=== PATIENT | male | born 1930 | race American Indian/Alaskan Native ===

== ENCOUNTER 2017-05-10 10:47 | Emergency (ER) | payer MEDICARE ==
--- NOTE | 2017-05-10 11:20 | Emergency Department Report ---
ED Lower Extremity HPI - General Chief Complaint: Extremity Injury, Lower Stated Complaint: R FOOT BUNION Time Seen by Provider: 05/10/17 11:03 Source: patient, family Mode of arrival: Ambulatory Limitations: No Limitations - History of Present Illness Initial Comments: This is a 87 y.o. M presents with right great toe pain. He states 3 days ago he woke up with pain to right great toe. States it is painful to put a sock on or anything rubbing against it. He denies falling or bumping it against anything. It is aggravated with touch, movement, and unable to bear pressure. He used Epson salt and hot water soaks x 2 w/o relief. States blood pressure is possibly elevated due to pain because took medication at 7 am this morning. He can't remember the name of hypertension medication only dose and route, 10 mg, po, daily. PCP at [facility]. Onset/Timin -: Sudden, days(s) Injury: Foot: Right (distal 1st metatorsal) Severity: moderate Severity scale (0 -10): 8 Improves With: immobilization, rest, other (Epsion salt soaks) Worsens With: weight bearing, movement, palpation Context: other (Awoke 3 days with pain and swelling to right great toe) Associated Symptoms: swelling, able to partially bear weight, ambulatory Treatments Prior to Arrival: other (epson salt and hot water soaks) - Related Data Previous Rx's Medication Instructions Recorded Last Taken Type Potassium Chloride [Klor-Con 10] 10 meq PO ONCE 1 Days #4 tablet.er 05/10/17 Unknown Rx Prednisone [predniSONE 10 mg 10 mg PO .TAPER #1 tab.ds.pk 05/10/17 Unknown Rx (6-Day Pack, 21 Tabs)] traMADol [Ultram 50 MG tab] 50 mg PO Q6HR PRN 5 Days #20 tablet 05/10/17 Unknown Rx Allergies Allergy/AdvReac Type Severity Reaction Status Date / Time No Known Allergies Allergy Unverified 05/10/17 10:52 ED Review of Systems ROS: Stated complaint: R FOOT BUNION Other details as noted in HPI Constitutional: denies: chills, fever Eyes: denies: eye pain, eye discharge, vision change ENT: denies: ear pain, throat pain Respiratory: denies: cough, shortness of breath, wheezing Cardiovascular: denies: chest pain, palpitations Endocrine: no symptoms reported Gastrointestinal: denies: abdominal pain, nausea, diarrhea Genitourinary: denies: urgency, dysuria Musculoskeletal: joint swelling, other (Erythema, tenderness and swelling to dorsal, right first metatarsophalangeal joint, shiny skin over joint). denies: back pain, arthralgia Skin: denies: rash, lesions Neurological: denies: headache, weakness, paresthesias Psychiatric: denies: anxiety, depression Hematological/Lymphatic: denies: easy bleeding, easy bruising ED Past Medical Hx - Past Medical History Hx Hypertension: Yes Hx CVA: No Hx Heart Attack/AMI: No Hx Congestive Heart Failure: No Hx Diabetes: No Hx Deep Vein Thrombosis: No Hx Pulmonary Embolism: No Hx GERD: No Hx Liver Disease: No Hx Renal Disease: No Hx of Cancer: No Hx Sickle Cell Disease: No Hx Arthritis: No Hx Headaches / Migraines: No Hx Seizures: No Hx Kidney Stones: No Hx Psychiatric Treatment: No Hx Asthma: No Hx COPD: No Hx Tuberculosis: No Hx Dementia: No Hx HIV: No - Surgical History Hx Coronary Stent: No Hx Open Heart Surgery: No Hx Pacemaker: No Hx Internal Defibrillator: No Hx Cholecystectomy: No Hx Appendectomy: No Hx Breast Surgery: No Additional Surgical History: PROSTATE SURGERY 1998 - Social History Smoking Status: Current Every Day Smoker Substance Use Type: None - Medications Home Medications: Home Medications Medication Instructions Recorded Confirmed Last Taken Type Potassium Chloride [Klor-Con 10] 10 meq PO ONCE 1 Days #4 tablet.er 05/10/17 Unknown Rx Prednisone [predniSONE 10 mg 10 mg PO .TAPER #1 tab.ds.pk 05/10/17 Unknown Rx (6-Day Pack, 21 Tabs)] traMADol [Ultram 50 MG tab] 50 mg PO Q6HR PRN 5 Days #20 tablet 05/10/17 Unknown Rx ED Physical Exam - General Limitations: No Limitations General appearance: alert, in no apparent distress - Head Head exam: Present: normocephalic, normal inspection - Eye Eye exam: Present: normal appearance - Neck Neck exam: Present: normal inspection - Extremities Exam Extremities exam: Present: tenderness, normal capillary refill, joint swelling - Expanded Lower Extremity Exam Right Foot/Toe exam: Present: tenderness, swelling, erythema (tenderness at head of first MTP joint) - Neurological Exam Neurological exam: Present: alert, oriented X3, CN II-XII intact, abnormal gait (Unable to bear pressure to right foot), reflexes normal. Absent: altered, motor sensory deficit - Psychiatric Psychiatric exam: Present: normal affect, normal mood. Absent: depressed, agitated, anxious, flat affect, manic, homicidal ideation, suicidal ideation - Skin Skin exam: Present: warm, dry, intact, erythema (right distal great toe). Absent: rash, cyanosis, diaphoretic, urticaria, vesicles, petechiae, pallor, abrasion, ecchymosis ED Course Vital Signs 05/10/17 05/10/17 10:52 13:54 Temperature 98.6 F Pulse Rate 94 H 86 Respiratory 18 18 Rate Blood Pressure 158/99 Blood Pressure 134/74 [Left] O2 Sat by Pulse 98 Oximetry ED Lower Extremity MDM - Lab Data Result diagrams: 05/10/17 11:56 05/10/17 11:00 - Radiology Data Radiology results: report reviewed Soft tissue swelling, mild degenerative changes, and plantar spur - Medical Decision Making 87 y.o. M. came in with acute right great toe pain. Dx with gout. Started on colcrys, ordered CMP to check renal function. Potassium was 3.1. Given Klor-con 40 mEq po once and advised to f/u with PCP at [place]. Critical care attestation.: If time is entered above; I have spent that time in minutes in the direct care of this critically ill patient, excluding procedure time. ED Disposition Clinical Impression: Acute hypokalemia Gout attack Qualifiers: Gout site: foot Gout etiology: idiopathic Laterality: right Qualified Code(s): M10.071 - Idiopathic gout, right ankle and foot Disposition: TO HOME OR SELFCARE Is pt being admited?: No Does the pt Need Aspirin: No Condition: Stable Instructions: Low Purine Diet (ED), Acute Gouty Arthritis (ED), Self-Care Measures with a Chronic Disease (ED) Additional Instructions: Follow-up with PCP on Friday to recheck potassium. Prescriptions: Potassium Chloride [Klor-Con 10] 10 meq PO ONCE 1 Days #4 tablet.er Prednisone [predniSONE 10 mg (6-Day Pack, 21 Tabs)] 10 mg PO .TAPER #1 tab.ds.pk traMADol [Ultram 50 MG tab] 50 mg PO Q6HR PRN 5 Days #20 tablet PRN Reason: Pain Referrals: PRIMARY CARE, [Primary Care Provider] - 3-[address] [facility] [Outside] - 3-5 Days Time of Disposition: 15:30 Print Language: MACEDONIAN
[2017-05-10 12:13] LABS: Basophils % (Auto) 0.4 % (0.0-1.8); Eosinophils % (Auto) 0.1 % (0.0-4.3); Hematocrit 38.6 % (35.5-45.6); Hemoglobin 12.6 gm/dl (11.8-15.2); Mean Corpuscular HGB Conc 33 % (32-34); Mean Corpuscular Hemoglobin 29 pg (28-32); Mean Corpuscular Volume 90 fl (84-94); Platelet Count 205 K/mm3 (140-440); Red Blood Count 4.28 M/mm3 (3.65-5.03); Red Cell Distribution Width 13.3 % (13.2-15.2); White Blood Count 7.2 K/mm3 (4.5-11.0)
--- NOTE | 2017-05-10 12:21 | XRay Report ---
RIGHT FOOT, 3 views: History: Right great toe pain There is mild soft tissue swelling distally. Bone mineralization is mildly decreased. No evidence for displaced fracture, periostitis or bony erosions. Mild osteoarthritic changes are noted at the first metatarsophalangeal joint. Small plantar spur. IMPRESSION: Mild soft tissue swelling. Mild degenerative changes. Plantar spur.
[2017-05-10] MEDS ORDERED: ULTRAM PO ONE (13:29)
[2017-05-10 13:56] VITALS: BP 134/74
[2017-05-10 15:08] LABS: Albumin 3.5 g/dL (3.9-5); Albumin/Globulin Ratio 0.9 %; Alkaline Phosphatase 75 units/L (35-129); Anion Gap 22 mmol/L; BUN/Creatinine Ratio 15; Blood Urea Nitrogen 15 mg/dL (9-20); Calcium 8.7 mg/dL (8.4-10.2); Carbon Dioxide 21 mmol/L (22-30); Chloride 100.6 mmol/L (98-107); Glucose 88 mg/dL (75-100); Potassium 3.1 mmol/L (3.6-5.0); Sodium 140 mmol/L (137-145); Total Protein 7.3 g/dL (6.3-8.2)
[2017-05-10 15:09] LABS: Alanine Aminotransferase < 5 units/L (7-56)
== END 2017-05-10 16:01 | disposition home or self-care (01) ==
LOC: ED 10:47
DX: M10.071 Idiopathic gout, right ankle and foot (principal); E87.6 Hypokalemia; I10 Essential (primary) hypertension; F17.200 Nicotine dependence, unspecified, uncomplicated
CPT/HCPCS: 36415; 80053; 83735; 84550; 85025

== ENCOUNTER 2017-05-29 10:01 | Emergency (ER) | payer MEDICARE ==
[2017-05-29] MEDS ORDERED: NORVASC PO ONE (16:18)
[2017-05-29] MEDS ORDERED: NORCO 5/325 PO ONE (16:19)
--- NOTE | 2017-05-29 16:38 | Emergency Department Report ---
ED Extremity Problem HPI - General Chief complaint: Extremity Problem,Nontraumatic Stated complaint: GOUT Source: patient Mode of arrival: Ambulatory Limitations: No Limitations - History of Present Illness Initial comments: 87 y/o nontoxic in appearance M presents today stating that his gout has been acting up again. Pt was seen here 2 weeks ago for the same issue. He states that it hurts so bad to even put a sock on the foot. Pt reports to some warmth and a 6/10 in severity pain at this time. He denies any fever, chills, chest pain, blurried vision, or headaches at this time. He states that he takes amlodipine usually at home but has not taken this morning as he was busy and forgot. Pt take amlodipine at home. NDKDA. -: days(s) (1) Location: right, toe History of Same: Yes Radiation: none Severity scale (0 -10): 6 Quality: stabbing Consistency: constant - Related Data Previous Rx's Medication Instructions Recorded Last Taken Type Potassium Chloride [Klor-Con 10] 10 meq PO ONCE 1 Days #4 tablet.er 05/10/17 Unknown Rx Prednisone [predniSONE 10 mg 10 mg PO .TAPER #1 tab.ds.pk 05/10/17 Unknown Rx (6-Day Pack, 21 Tabs)] traMADol [Ultram 50 MG tab] 50 mg PO Q6HR PRN 5 Days #20 tablet 05/10/17 Unknown Rx traMADol [Ultram] 50 mg PO Q6HR PRN 5 Days #20 tablet 05/29/17 Unknown Rx Allergies Allergy/AdvReac Type Severity Reaction Status Date / Time No Known Allergies Allergy Unverified 05/10/17 10:52 ED Review of Systems ROS: Stated complaint: GOUT Other details as noted in HPI Constitutional: denies: chills, fever Eyes: denies: eye pain, eye discharge, vision change ENT: denies: ear pain, throat pain Respiratory: denies: cough, shortness of breath, wheezing Cardiovascular: denies: chest pain, palpitations Musculoskeletal: other (right great toe, pain, swelling, and warmth) Skin: other (warmth of the right great toe) Neurological: denies: headache, weakness, paresthesias Psychiatric: denies: anxiety, depression ED Past Medical Hx - Past Medical History Hx Hypertension: Yes Hx CVA: No Hx Heart Attack/AMI: No Hx Congestive Heart Failure: No Hx Diabetes: No Hx Deep Vein Thrombosis: No Hx Pulmonary Embolism: No Hx GERD: No Hx Liver Disease: No Hx Renal Disease: No Hx Sickle Cell Disease: No Hx Arthritis: No Hx Headaches / Migraines: No Hx Seizures: No Hx Kidney Stones: No Hx Psychiatric Treatment: No Hx Asthma: No Hx COPD: No Hx Tuberculosis: No Hx Dementia: No Hx HIV: No - Surgical History Hx Coronary Stent: No Hx Open Heart Surgery: No Hx Pacemaker: No Hx Internal Defibrillator: No Hx Cholecystectomy: No Hx Appendectomy: No Hx Breast Surgery: No Additional Surgical History: PROSTATE SURGERY 1998 - Social History Smoking Status: Current Every Day Smoker Substance Use Type: None - Medications Home Medications: Home Medications Medication Instructions Recorded Confirmed Last Taken Type Potassium Chloride [Klor-Con 10] 10 meq PO ONCE 1 Days #4 tablet.er 05/10/17 Unknown Rx Prednisone [predniSONE 10 mg 10 mg PO .TAPER #1 tab.ds.pk 05/10/17 Unknown Rx (6-Day Pack, 21 Tabs)] traMADol [Ultram 50 MG tab] 50 mg PO Q6HR PRN 5 Days #20 tablet 05/10/17 Unknown Rx traMADol [Ultram] 50 mg PO Q6HR PRN 5 Days #20 tablet 05/29/17 Unknown Rx ED Physical Exam - General Limitations: No Limitations General appearance: alert, in no apparent distress - Head Head exam: Present: atraumatic, normocephalic - Eye Eye exam: Present: normal appearance - ENT ENT exam: Present: mucous membranes moist - Neck Neck exam: Present: normal inspection - Respiratory Respiratory exam: Present: normal lung sounds bilaterally. Absent: respiratory distress - Cardiovascular Cardiovascular Exam: Present: regular rate, normal rhythm. Absent: systolic murmur, diastolic murmur, rubs, gallop - Extremities Exam Extremities exam: Present: other (there is ttp at the first MTP right foot, redness and warmth) - Neurological Exam Neurological exam: Present: alert, oriented X3, CN II-XII intact - Psychiatric Psychiatric exam: Present: normal affect, normal mood - Skin Skin exam: Present: other (warmth of the first great toe-right foot) ED Course Vital Signs 05/29/17 05/29/17 05/29/17 10:21 15:59 16:30 Temperature 97.8 F Pulse Rate 78 78 Respiratory 18 Rate Blood Pressure 178/116 180/108 Blood Pressure 180/108 [Right] O2 Sat by Pulse 96 Oximetry 05/29/17 16:55 Temperature 97.7 F Pulse Rate 75 Respiratory 16 Rate Blood Pressure Blood Pressure 173/103 [Right] O2 Sat by Pulse 98 Oximetry ED Medical Decision Making - Medical Decision Making Case was discussed with Dr. Du regarding management and treatment. Pt was given Coleman here in the ED of the pain and amlodipine 10 mg foe the elevated BP. He was discharged with Ultram for home. Pt was advised the importance of follow-up with PCP regarding elevated BP, he reported verbal understanding. Pt was adamant to leave at this time despite the elevated BP. At this time, he was not symptamtic, no chest pain, SOB, vision changes, headache, or blurried vision. Dr. Du states that it will be okay to discharge him home at this time, with close PCP follow-up. pt had a ride to transport him home today. He was alert and oriented and in no resp distress at discharge. Critical care attestation.: If time is entered above; I have spent that time in minutes in the direct care of this critically ill patient, excluding procedure time. ED Disposition Clinical Impression: Gout attack Qualifiers: Gout site: toe Gout etiology: unspecified cause Laterality: right Qualified Code(s): M10.9 - Gout, unspecified Disposition: - TO HOME OR SELFCARE Is pt being admited?: No Does the pt Need Aspirin: No Condition: Stable Instructions: Tramadol (By mouth), Acute Gouty Arthritis (ED) Additional Instructions: Please be advised that this medication may cause drowsiness, do not take with driving or operating heavy machinery. It is very important that you follow-up with PCP for your diagnosis and age. Please follow-up with them within 3-5 days. Referral to orthopedics has been provided for you today as well. Please return to the ER immediately if you presenting symptoms progress or acutely worsen. Pt educated about the importance of follow-up for elevated BP. Prescriptions: traMADol [Ultram] 50 mg PO Q6HR PRN 5 Days #20 tablet PRN Reason: Pain Referrals: SAUL PANCHAL MD [Primary Care Provider] - 3-5 Days HAYLEY BARTH MD [Staff Physician] - 3-5 Days [facility] [Outside] - 3-5 Days [facility] [Outside] - 3-5 Days JUAN PABLO LYON MD [Staff Physician] - 3-5 Days Forms: Work/School Release Form(ED)
[2017-05-29 16:56] VITALS: BP 173/103
== END 2017-05-29 17:46 | disposition home or self-care (01) ==
LOC: ED 10:01
DX: M10.9 Gout, unspecified (principal); I10 Essential (primary) hypertension; F17.200 Nicotine dependence, unspecified, uncomplicated
CPT/HCPCS: 99282

== ENCOUNTER 2017-07-11 10:36 | Emergency (ER) | payer MEDICARE ==
[2017-07-11 11:13] VITALS: BP 146/89
--- NOTE | 2017-07-11 13:14 | Emergency Department Report ---
Chief Complaint: Extremity Problem,Nontraumatic Stated Complaint: GOUT PAIN - HPI History of Present Illness: 87-year-old male states that he "feels pretty good" except for his right foot pain. He has gout exacerbation. - Exam Vital Signs: Vital Signs 07/11/17 11:10 Temperature 97.7 F Pulse Rate 82 Respiratory 18 Rate Blood Pressure 146/89 O2 Sat by Pulse 98 Oximetry MSE screening note: Focused history and physical exam performed. Due to findings the following was ordered: ED Disposition for MSE Condition: Stable
[2017-07-11] MEDS ORDERED: TORADOL IM ONE (13:25)
[2017-07-11] MEDS ORDERED: DECADRON IM ONE (13:25)
--- NOTE | 2017-07-11 13:27 | Emergency Department Report ---
ED Extremity Problem HPI - General Chief complaint: Extremity Problem,Nontraumatic Stated complaint: GOUT PAIN Time Seen by Provider: 07/11/17 13:22 Source: patient Mode of arrival: Ambulatory Limitations: No Limitations - History of Present Illness Initial comments: 87-year-old -[place] male with a past medical history of hypertension and gout comes in for complaint of right foot first digit swelling and pain that reports 7 out of 10. Patient reports that he does not drink he only eats fish and vegetables. He denies any kidney disease no MIs, only hypertension history of gout. He is not familiar to wet his gout medication has been in the past. He is followed by Dr. Deni Painting in [place]. MD Complaint: extremity pain, extremity swelling -: days(s) (3) - Related Data Previous Rx's Medication Instructions Recorded Last Taken Type Potassium Chloride [Klor-Con 10] 10 meq PO ONCE 1 Days #4 tablet.er 05/10/17 Unknown Rx traMADol [Ultram 50 MG tab] 50 mg PO Q6HR PRN 5 Days #20 tablet 05/10/17 Unknown Rx traMADol [Ultram] 50 mg PO Q6HR PRN 5 Days #20 tablet 05/29/17 Unknown Rx Indomethacin [Indocin] 25 mg PO Q8H 5 Days #15 capsule 07/11/17 Unknown Rx Prednisone [predniSONE 10 mg 10 mg PO .TAPER #1 tab.ds.pk 07/11/17 Unknown Rx (6-Day Pack, 21 Tabs)] Allergies Allergy/AdvReac Type Severity Reaction Status Date / Time No Known Allergies Allergy Unverified 05/10/17 10:52 ED Review of Systems ROS: Stated complaint: GOUT PAIN Other details as noted in HPI Constitutional: denies: chills, fever Eyes: denies: eye pain, eye discharge, vision change ENT: denies: ear pain, throat pain Respiratory: denies: cough, shortness of breath, wheezing Cardiovascular: denies: chest pain, palpitations Endocrine: no symptoms reported Gastrointestinal: denies: abdominal pain, nausea, diarrhea Musculoskeletal: joint swelling, arthralgia Skin: denies: rash, lesions Neurological: denies: headache, weakness, paresthesias Psychiatric: denies: anxiety, depression ED Past Medical Hx - Past Medical History Hx Hypertension: Yes Hx CVA: No Hx Heart Attack/AMI: No Hx Congestive Heart Failure: No Hx Diabetes: No Hx Deep Vein Thrombosis: No Hx Pulmonary Embolism: No Hx GERD: No Hx Liver Disease: No Hx Renal Disease: No Hx Sickle Cell Disease: No Hx Arthritis: No Hx Headaches / Migraines: No Hx Seizures: No Hx Kidney Stones: No Hx Psychiatric Treatment: No Hx Asthma: No Hx COPD: No Hx Tuberculosis: No Hx Dementia: No Hx HIV: No - Surgical History Hx Coronary Stent: No Hx Open Heart Surgery: No Hx Pacemaker: No Hx Internal Defibrillator: No Hx Cholecystectomy: No Hx Appendectomy: No Hx Breast Surgery: No Additional Surgical History: PROSTATE SURGERY 1998 - Social History Smoking Status: Current Every Day Smoker Substance Use Type: None - Medications Home Medications: Home Medications Medication Instructions Recorded Confirmed Last Taken Type Potassium Chloride [Klor-Con 10] 10 meq PO ONCE 1 Days #4 tablet.er 05/10/17 Unknown Rx traMADol [Ultram 50 MG tab] 50 mg PO Q6HR PRN 5 Days #20 tablet 05/10/17 Unknown Rx traMADol [Ultram] 50 mg PO Q6HR PRN 5 Days #20 tablet 05/29/17 Unknown Rx Indomethacin [Indocin] 25 mg PO Q8H 5 Days #15 capsule 07/11/17 Unknown Rx Prednisone [predniSONE 10 mg 10 mg PO .TAPER #1 tab.ds.pk 07/11/17 Unknown Rx (6-Day Pack, 21 Tabs)] ED Physical Exam - General Limitations: No Limitations General appearance: alert, in no apparent distress - Head Head exam: Present: atraumatic, normocephalic - Cardiovascular Cardiovascular Exam: Present: regular rate, normal rhythm. Absent: systolic murmur, diastolic murmur, rubs, gallop - Rectal Rectal exam: Present: deferred - Extremities Exam Extremities exam: Present: normal inspection - Back Exam Back exam: Present: normal inspection - Neurological Exam Neurological exam: Present: alert, oriented X3 - Psychiatric Psychiatric exam: Present: normal affect, normal mood - Skin Skin exam: Present: warm, dry, intact, normal color. Absent: rash ED Course Vital Signs 07/11/17 11:10 Temperature 97.7 F Pulse Rate 82 Respiratory 18 Rate Blood Pressure 146/89 O2 Sat by Pulse 98 Oximetry ED Medical Decision Making - Medical Decision Making Patient's been evaluated by this provider fast track. Discussed the patient we will treat his gout and discharge him home patient very pleased with that we discussed he needs this followed up with his primary care which is Dr. Painting in [place] patient verbalizes understanding. Critical care attestation.: If time is entered above; I have spent that time in minutes in the direct care of this critically ill patient, excluding procedure time. ED Disposition Clinical Impression: Gout attack Qualifiers: Gout site: toe Gout etiology: unspecified cause Laterality: right Qualified Code(s): M10.9 - Gout, unspecified Disposition: TO HOME OR SELFCARE Is pt being admited?: No Does the pt Need Aspirin: No Condition: Stable Instructions: Acute Gouty Arthritis (ED) Additional Instructions: Please take medications as prescribed. Please increase fluid consumption over the next few days while taking medication. Follow up with her primary care provider within 3-5 days for further evaluation. Prescriptions: Indomethacin [Indocin] 25 mg PO Q8H 5 Days #15 capsule Prednisone [predniSONE 10 mg (6-Day Pack, 21 Tabs)] 10 mg PO .TAPER #1 tab.ds.pk Referrals: Deni Thompson [Other] - 3-5 Days Forms: Work/School Release Form(ED)
[2017-07-11] MEDS ORDERED: TORADOL ONE (13:41)
== END 2017-07-11 14:01 | disposition home or self-care (01) ==
LOC: ED 10:36
DX: M10.9 Gout, unspecified (principal); I10 Essential (primary) hypertension; F17.200 Nicotine dependence, unspecified, uncomplicated
CPT/HCPCS: 96372; 99282; J1100; J1885